=== PATIENT | female | born 1975 | race Caucasian/White ===

== ENCOUNTER 2023-07-10 07:41 | Emergency (ER) | payer OTHER, BC ==
[2023-07-10] MEDS ORDERED: Boostrix 0.5 ML (Tdap) VIAL (>/=7 yrs of age) ONE (08:36)
== END 2023-07-10 09:37 | disposition home or self-care (01) ==
LOC: MADERS 07:41
DX: S62.631A Displaced fracture of distal phalanx of left index finger, initial encounter for closed fracture (principal); S93.401A Sprain of unspecified ligament of right ankle, initial encounter; S80.811A Abrasion, right lower leg, initial encounter; M87.874 Other osteonecrosis, right foot; V29.99XA Rider (driver) (passenger) of other motorcycle injured in unspecified traffic accident, initial encounter; Z23 Encounter for immunization
CPT/HCPCS: 26750; 90471; 90715